=== PATIENT | female | born 1965 | race Caucasian/White ===

== ENCOUNTER 2019-05-02 07:42 | Outpatient (CLI) | payer BC, SELFPAY ==
--- NOTE | ~2019-05-02 | US_ITS ---
EXAMINATION: US retroperitoneal comp EXAM DATE: 05/02/2019 08:36 INDICATION: Abnormal blood chemistry. High blood pressure. TECHNIQUE: Multiple grayscale and Doppler images of the kidneys were obtained (by a technologist who performed the scan) and subsequently reviewed. There is no prior study for comparison. FINDINGS: Right kidney: There is normal contour and echogenicity. It measures 9.1 x 3.3 x 5.1 centimeters. Th ere are no focal renal lesions identified. There is no hydronephrosis. Left kidney: There is normal contour and echogenicity. It measures 9.8 x 5.4 x 5.4 centimeters. The re are no focal renal lesions identified. There is no hydronephrosis. Bladder unremarkable. IMPRESSION: 1. Sonographically unremarkable kidneys. Reviewed, dictated and finalized at location B. 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
--- NOTE | ~2019-05-02 | US_ITS ---
EXAMINATION: US retroperitoneal duplex ltd EXAM DATE: 05/02/2019 08:36 INDICATION: Abnormal blood chemistry results. High blood pressure. TECHNIQUE: Multiple grayscale and Doppler images of the kidneys and renal arteries were obtained. T here is no prior study for comparison. FINDINGS: The aorta peak systolic velocity is 322 cm/s. The right renal artery peak systolic velocity is 147 cm /s in the proximal segment, 192 cm/s in the mid segment, and 70 cm/s in the distal segment. The left renal artery peak systolic velocity is 73 cm/s in the proximal segment, 37 cm/s in the mid segment, a nd 91 cm/s in the distal segment. IMPRESSION: 1. Renal artery Doppler velocities within normal limits. Reviewed, dictated and finalized at location B. TORIAL SUPERVISOR
[2019-05-02 08:53] LABS: Add Urine Microscopic? YES; Appearance Urine Clear (Clear); Bacteria Urine Trace /hpf; Bilirubin Urine Negative (Negative); Blood Urine Negative (Negative); Color Urine Yellow (Yellow); Glucose Urine UA Negative (Negative); Ketones Urine Negative (Negative); Leukocyte Esterase Ur 2+ LEU/UL (Negative); Mucus Urine Rare /lpf; Nitrate Urine Negative (Negative); Protein Urine Negative (Negative); RBC Urine 0-2 /hpf (0-2); Specific Grav Ur 1.014 (1.001-1.035); Squamous Epithelial Cell Urine Many /hpf (Few); Urobilinogen Urine Negative mg/dL (<2.0)
[2019-05-02 08:57] LABS: Cholesterol 155 mg/dL (0-200); HDL Direct 49 mg/dL; Triglycerides 123 mg/dL (<150)
[2019-05-02 09:08] LABS: LDL Cholesterol Direct 91 mg/dL
[2019-05-02 09:27] LABS: Hepatitis B Surface Antigen Negative (Negative)
[2019-05-05 00:28] LABS: Albumin 4.4 g/dL (3.8-4.8); Alpha 1 Globulin 0.2 g/dL (0.2-0.3); Alpha 2 Globulin 0.6 g/dL (0.5-0.9); Beta 1 Globulin 0.4 g/dL (0.4-0.6)
[2019-05-05 08:19] LABS: Creatinine, Random Urine 72 mg/dL (20-275); Total Protein/Creatinine Ratio 125 mg/g creat (21-161)
== END 2019-05-02 07:43 | disposition home or self-care (01) ==
PROVIDERS: PCP Internal Medicine; Visit Provider Nurse Practitioner
DX: R79.89 Other specified abnormal findings of blood chemistry (principal); E78.5 Hyperlipidemia, unspecified
CPT/HCPCS: 36415; 76770; 80061; 81001; 82570; 84155; 84156; 84165; 84166; 86038; 87086; 87088; 87340; 93976

== ENCOUNTER 2020-04-15 06:38 | Outpatient (CLI) | payer BC, SELFPAY ==
[2020-04-15 07:45] LABS: Alanine Aminotransferase 23 U/L (4-35); Albumin Level 4.1 g/dL (3.5-5.1); Alkaline Phosphatase 42 U/L (38-126); Anion Gap 6 mmol/L (8-16); Aspartate Amino Transferase 28 U/L (14-36); Bilirubin,Total 0.6 mg/dL (0.2-1.3); Blood Urea Nitrogen 11 mg/dL (7-17); Calcium 8.6 mg/dL (8.4-10.2); Carbon Dioxide 30 mmol/L (22-30); Chloride 101 mmol/L (98-107); Cholesterol 169 mg/dL (0-200); Estimated Glomerular Filt Rate > 60; Glucose 88 mg/dL (65-105); HDL Direct 50 mg/dL; Potassium 4.2 mmol/L (3.4-5.0); Sodium 137 mmol/L (137-145); Triglycerides 252 mg/dL (<150)
[2020-04-15 07:56] LABS: LDL Cholesterol Direct 85 mg/dL
[2020-04-15 08:02] LABS: Basophils Percent Auto 0.8 % (0.2-1.2); Eosinophils Absolute Auto 0.1 K/mm3 (0-0.3); Eosinophils Percent Auto 1.3 % (0-4.4); Hematocrit 41.7 % (37.0-47.0); Immature Granulocyte Absolute 0.01 K/mm3 (0.00-0.031); Immature Granulocyte Percent A 0.2 % (0-0.5); Lymphocytes Absolute Auto 2.03 K/mm3 (0.9-3.2); Lymphocytes Percent Auto 38.6 % (18.3-44.2); Mean Corpuscular HGB Conc 33.6 g/dl (32-36); Mean Corpuscular Hemoglobin 32.4 pg (26-34); Mean Corpuscular Volume 96.5 fl (80-100); Mean Platelet Volume 9.5 fl (7.4-10.4); Monocytes Absolute Auto 0.4 K/mm3 (0.1-0.6); Monocytes Percent Auto 8.4 % (2.6-8.5); Neutrophils Absolute Auto 2.7 K/mm3 (1.3-6.7); Neutrophils Percent Auto 50.7 % (45.5-73.1); Platelet Count Result 274 k/mm3 (150-375); Red Blood Count 4.32 M/mm3 (4.2-5.4); Red Cell Distribution Width 13.1 % (11.5-14.5); White Blood Count 5.3 K/mm3 (4.5-10.0)
== END 2020-04-15 06:39 | disposition home or self-care (01) ==
PROVIDERS: PCP Internal Medicine; Visit Provider Clinical Nurse Specialist
DX: I10 Essential (primary) hypertension (principal); R53.83 Other fatigue
CPT/HCPCS: 36415; 80053; 80061; 84443; 85025

== ENCOUNTER 2021-09-13 10:50 | Outpatient (CLI) | payer BC, SELFPAY ==
--- NOTE | ~2021-09-13 | XR_ITS ---
EXAMINATION: XR knee RT 3V DATE: 09/13/2021 11:22 INDICATION: Unspecified right knee pain post fall 4 months prior TECHNIQUE: AP, lateral and sunrise views of the right knee were obtained COMPARISON: None. FINDINGS: Alignment is normal. No fracture. Joint spaces are normal on nonweightbearing imaging. No joint effu michelle/layering lipohemarthrosis. Soft tissues are unremarkable. IMPRESSION: 1. No right knee joint effusion or osseous abnormality. Reviewed, dictated and finalized at location A.
== END 2021-09-13 10:51 | disposition home or self-care (01) ==
LOC: ANHIMG 10:56
PROVIDERS: PCP Internal Medicine; Visit Provider Clinical Nurse Specialist
DX: M25.569 Pain in unspecified knee (principal)
CPT/HCPCS: 73562

== ENCOUNTER 2021-09-24 08:28 | Outpatient (CLI) | payer BC, SELFPAY ==
--- NOTE | ~2021-09-24 | MR_ITS ---
EXAMINATION: MR knee RT wo con DATE: 09/24/2021 09:50 INDICATION: Anterior right knee pain post fall 5 months prior. TECHNIQUE: Magnetic resonance imaging (MRI) of the right knee was performed without intravenous contr ast. Sequences included coronal PD-weighted FSE, coronal PD-weighted FS FSE, sagittal T2-weighted FS E, sagittal PD-weighted FS FSE and axial PD weighted fat saturated FSE. COMPARISON: None. FINDINGS: Medial compartment: Medial meniscus is normal. Deep chondral fissure involving greater than 50% the cartilage thickness b ut without degenerative subchondral changes at the anterior weightbearing medial femoral condyle. Add itional partial thickness chondral fissuring which may also involve greater than 50% the cartilage th ickness but without degenerative subchondral changes at the central aspect of the medial tibial plate au. Lateral compartment: Lateral meniscus is normal. Deep chondral fissure involving greater than 50% the cartilage thickness but without degenerative subchondral changes at the anterior weightbearing lateral femoral condyle. P artial-thickness cartilage loss which involves greater than 50% the cartilage thickness at the centra l aspect of the lateral tibial plateau and with mild chondral surface irregularity. Patellofemoral compartment: Deep chondral fissuring involving greater than 50% the cartilage thickness without degenerative subch ondral changes at the medial side of the lateral patellar facet and at the superior aspect of the tro chlear groove. Chondral ulceration and deep fissuring with underlying subtle cortical irregularity an d minimal edema-like signal change at the inferior aspect of the medial trochlea. Additional less sev ere chondral fissuring involving less than 50% the cartilage thickness at the lateral aspect of the l ateral patellar facet and at the apical ridge and medial facet. Ligaments and tendons: Anterior and posterior cruciate ligaments are normal. The medial collateral ligament and fibular mariela ateral ligament complex are normal. The extensor mechanism is normal. The visualized medial and later al hamstring tendons as well as the iliotibial band are normal. Fluid: Physiologic amount of fluid in the joint space. No loose osteochondral bodies identified. Small Pimentel 's cyst. Small loculated prepatellar fluid collection with mild surrounding edema which measures 3 cm craniocaudally, 1.5 cm medial to lateral and up to 2-3 mm maximal thickness which could be due to pr epatellar bursitis or a posttraumatic hematoma/seroma given the provided history of anterior knee ede n post fall onto the knee several months prior. Osseous/other: Normal marrow signal throughout aside from the previously noted small focus of minimal subarticular e saad-like signal change at the medial trochlea. No fracture or pathologic marrow replacing process. IMPRESSION: 1. Mild prepatellar bursitis versus posttraumatic hematoma/seroma overlying the inferolateral aspect of the patella. 2. 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 Reviewed, dictated and finalized at location B. IMPRESSION: 1. Mild prepatellar bursitis versus posttraumatic hematoma/seroma overlying the inferolateral aspect of the patella. 2. Mild tricompartmental osteoarthritis with moderate to high-grade chondromala mg with deep chondral fissuring in all 3 compartments as detailed above.
== END 2021-09-24 08:29 | disposition home or self-care (01) ==
PROVIDERS: PCP Internal Medicine; Visit Provider Clinical Nurse Specialist
DX: M17.11 Unilateral primary osteoarthritis, right knee (principal)
CPT/HCPCS: 73721

== ENCOUNTER 2023-09-25 06:29 | Day surgery (SDC) | payer OTHER, SELFPAY ==
[2023-07-04 14:53] VITALS: BMI 29.2
[2023-09-14 14:22] VITALS: BMI 29.2
--- NOTE | 2023-09-25 06:49 | WPDANESEPPF ---
Anes - Initial Pre Proc Eval Procedure: Operation Date: 09/25/23 08:30 Proposed Procedures p Screening Colonoscopy - Otto Olsen DO Date/Time: 09/25/23 06:49 Surgeon: Otto Olsen DO Pre Op Diagnosis: Neoplasm screening Patient Data Age: 57 Gender: F Height: 1.6 m Weight: 75 kg Allergies Allergy/AdvReac Type Severity Reaction Status Date / Time No Known Allergies Allergy Verified 09/25/23 07:03 Home Medications Medication Instructions Recorded Confirmed Type lamotrigine 200 mg tablet 200 mg PO BID 04/01/19 09/25/23 History levomilnacipran 80 mg capsule,24 80 mg PO DAILY 04/01/19 09/25/23 History hr,extended release (Fetzima) lisdexamfetamine 50 mg capsule 50 mg PO DAILY 04/01/19 09/25/23 History (Vyvanse) magnesium 250 mg tablet 250 mg PO DAILY 04/01/19 09/25/23 History multivit with min-folic 1 tablet PO DAILY 04/01/19 09/25/23 History acid-lutein 400 mcg-250 mcg chewable tablet (Centrum Silver) glucosamine HCl 1,500 mg tablet 1,500 mg PO DAILY 04/22/19 09/25/23 History ibuprofen 200 mg tablet (Advil) 200 mg PO Q6H PRN Pain 04/22/19 09/25/23 History omega-3 fatty acids 1,000 mg 1,000 mg PO DAILY 04/22/19 09/25/23 History capsule (Fish Oil Concentrate) omeprazole 20 mg capsule,delayed 20 mg PO DAILY 04/22/19 09/25/23 History release estradiol 1 mg tablet 1 mg PO DAILY 11/14/19 09/25/23 History vilazodone 20 mg tablet (Viibryd) 20 mg PO DAILY 11/14/19 09/25/23 History fluticasone propionate 50 See Rx Instructions .Route 03/29/23 09/25/23 Rx mcg/actuation nasal .COMPLEX #48 grams spray,suspension olmesartan 20 mg tablet (Benicar) 20 mg PO DAILY #90 tabs 09/07/23 09/25/23 Rx atorvastatin 20 mg tablet 20 mg PO DAILY 09/14/23 09/25/23 History gabapentin 300 mg capsule 300 mg PO QID 09/14/23 09/25/23 History Patient hx anesthesia problems: none Family hx anesthesia problems: none Results Review: All pre-operative results and documents have been reviewed as part of the pre-operative evaluation. [facility] Past Medical History Medical History (Updated 09/22/23 @ 10:51 by Anam Kim DO) ADD (attention deficit disorder) Fibromyalgia Hearing difficulty Hyperlipidemia Hypertension Osteoarthritis Post-menopausal Surgical History Surgical History History of carpal tunnel release 09/05/2018 Family History Family History Mother Depression Hypertension Patient's mother is in good health Dementia Father Hypertension Sibling Patient's brother is in good health Family history of cardiovascular disease Social History Social History (Updated 03/29/23 @ 14:06 by Maylin Gomez CMA) Smoking status: Never smoker Alcohol intake: current Alcohol use details: 2-4 per month Substance use type: does not use Do You Feel Safe in your Home?: Yes Lack of Transportation: No Lack of Food: Never True Current Housing: I Have Housing Concerned About Future Housing: No Difficulty Paying Gas/Electric Bills: No Difficulty Paying for Meds: No Currently Unemployed: No Education: Master's Degree or Higher Difficulty w/ Childcare or Family Care: No Living arrangements: with family Spiritual care concerns: No Anes - Eval Final PreProcedure Day of Procedure 09/25/23 06:49 Patient weight: overweight Heart: regular rate and rhythm Lungs: clear to auscultation Airway: Mallampati scale class II Neurological: alert and oriented Last oral intake: >/= 8 hours ASA classification: II Emergent: no Anesthetic plan: proceed Anesthesia type and monitoring: general GIVS and standard monitoring Results Review: All pre-operative results and documents have been reviewed as part of the pre-operative evaluation. Informed Consent: The patient's anesthetic plan and its attendant risks and benefits were discussed
[2023-09-25 07:23] VITALS: BP 136/96; PULSE 93; RESP 18; TEMP 36.7; O2SAT 100; BMI 28.5
[2023-09-25] MEDS: LACTATED RINGERS 1,000 ML 150 ML IV CONT (07:34)
--- NOTE | 2023-09-25 08:46 | PM.IMHP ---
H&P: HPI History of Present Illness Date/Time: 09/25/23 08:46 Chief Complaint: screening for colon cancer Narrative: this is a 57-year-old woman who presents for colonoscopy. Her last colonoscopy was 10 years ago denies any hematochezia or melena. Denies any family history of colon cancer. Review of Systems Review of Systems: All systems reviewed & are unremarkable except as noted in HPI and below Constitutional: Constitutional: Denies chills, Denies fever(s), Denies headache(s) and Denies weight loss Eyes: Eyes: Denies change in vision ENT: Denies dizziness, Denies headache(s), Denies neck mass and Denies throat swelling Cardiovascular: Cardiovascular: Denies chest pain, Denies lightheadedness and Denies dyspnea Respiratory: Respiratory: Denies cough, Denies dyspnea and Denies wheezing Gastrointestinal: Gastrointestinal: Denies abdominal pain, Denies change in bowel habits, Denies nausea and Denies vomiting Genitourinary: Genitourinary: Denies hematuria and Denies dysuria Musculoskeletal: Musculoskeletal: Reports as per HPI Integumentary/Breasts: Skin/Breast: Reports as per HPI Neurologic: Denies dizziness and Denies headache(s) Allergic/Immunologic: Allergic/Immunologic: Denies throat swelling and Denies wheezing [facility] Past Medical History Medical History (Updated 09/22/23 @ 10:51 by Anam Kim DO) ADD (attention deficit disorder) Fibromyalgia Hearing difficulty Hyperlipidemia Hypertension Osteoarthritis Post-menopausal Surgical History Surgical History History of carpal tunnel release 09/05/2018 Family History Family History Mother Depression Hypertension Patient's mother is in good health Dementia Father Hypertension Sibling Patient's brother is in good health Family history of cardiovascular disease Social History Social History (Updated 03/29/23 @ 14:06 by Maylin Gomez CMA) Smoking status: Never smoker Alcohol intake: current Alcohol use details: 2-4 per month Substance use type: does not use Do You Feel Safe in your Home?: Yes Lack of Transportation: No Lack of Food: Never True Current Housing: I Have Housing Concerned About Future Housing: No Difficulty Paying Gas/Electric Bills: No Difficulty Paying for Meds: No Currently Unemployed: No Education: Master's Degree or Higher Difficulty w/ Childcare or Family Care: No Living arrangements: with family Spiritual care concerns: No Meds Home Medications and Allergies Home Medications Medication Instructions Recorded Confirmed Type lamotrigine 200 mg tablet 200 mg PO BID 04/01/19 09/25/23 History levomilnacipran 80 mg capsule,24 80 mg PO DAILY 04/01/19 09/25/23 History hr,extended release (Fetzima) lisdexamfetamine 50 mg capsule 50 mg PO DAILY 04/01/19 09/25/23 History (Vyvanse) magnesium 250 mg tablet 250 mg PO DAILY 04/01/19 09/25/23 History multivit with min-folic 1 tablet PO DAILY 04/01/19 09/25/23 History acid-lutein 400 mcg-250 mcg chewable tablet (Centrum Silver) glucosamine HCl 1,500 mg tablet 1,500 mg PO DAILY 04/22/19 09/25/23 History ibuprofen 200 mg tablet (Advil) 200 mg PO Q6H PRN Pain 04/22/19 09/25/23 History omega-3 fatty acids 1,000 mg 1,000 mg PO DAILY 04/22/19 09/25/23 History capsule (Fish Oil Concentrate) omeprazole 20 mg capsule,delayed 20 mg PO DAILY 04/22/19 09/25/23 History release estradiol 1 mg tablet 1 mg PO DAILY 11/14/19 09/25/23 History vilazodone 20 mg tablet (Viibryd) 20 mg PO DAILY 11/14/19 09/25/23 History fluticasone propionate 50 See Rx Instructions .Route 03/29/23 09/25/23 Rx mcg/actuation nasal .COMPLEX #48 grams spray,suspension olmesartan 20 mg tablet (Benicar) 20 mg PO DAILY #90 tabs 09/07/23 09/25/23 Rx atorvastatin 20 mg tablet 20 mg PO DAILY 09/14/23 09/25/23 History gabapen
[2023-09-25 09:32] VITALS: BP 114/74; PULSE 87; RESP 14; O2SAT 100
[2023-09-25 09:42] VITALS: BP 119/67; PULSE 82; RESP 16; O2SAT 99
[2023-09-25 09:52] VITALS: BP 125/78; PULSE 80; RESP 16; O2SAT 99
--- NOTE | 2023-09-25 10:43 | WPDANESPN ---
Anes - Prog Note Post-Op Date/Time: 09/25/23 10:43 Cardiovascular status: normal Respiratory status: normal Airway patency: baseline Mental status: baseline Post-Op hydration status: normal Vital Signs: Last Vital Signs Temp 36.7 C 09/25/23 07:23 Pulse 80 09/25/23 09:52 Resp 16 09/25/23 09:52 BP 125/78 09/25/23 09:52 Pulse Ox 99 09/25/23 09:52 O2 Del Method Room Air 09/25/23 09:52 Pain Score (VAS): 0 I/O: Intake & Output 09/24/23 09/25/23 09/25/23 23:59 07:59 15:59 Intake Total 950 Balance 950 Post-procedural complaints: none Patient Feedback: Patient satisfied with anesthetic care. Other Findings: Patient vital signs back to baseline. Patient denies nausea and vomiting. Patient's pain under control. Patient OK for discharge.
== END 2023-09-25 09:59 | disposition home or self-care (01) ==
PROVIDERS: PCP Internal Medicine; Visit Provider Surgery
PROC: 0DJD8ZZ Inspection of Lower Intestinal Tract, Via Natural or Artificial Opening Endoscopic (ICD-10-PCS; CPT 45378; principal; 2023-09-25 08:30)
DX: Z12.11 Encounter for screening for malignant neoplasm of colon (principal)
CPT/HCPCS: 45378